=== PATIENT | female | born 1965 | race Caucasian/White ===

== ENCOUNTER 2018-04-30 12:58 | Emergency (ER) | payer BC ==
[~2018-04-30] VITALS: Ht 154.9 cm; Wt 62.7 kg
[2018-04-30 13:06] VITALS: BP 148/90
--- NOTE | 2018-04-30 13:10 | NUR ---
52Y/F BIB SON, REFERRED BY DR BLACKMON FOR LOW HEMOGLOBIN 6.2; DENIES DIZZINESS. SKIN IS PINK/WARM/DRY; AAOX4 WITH EVEN AND STEADY GAIT; PATIENT STATES PAIN OF 0/10 AT THIS TIME; VSS; PATIENT POSITIONED FOR COMFORT; HOB ELEVATED; BEDRAILS UP X1; BED DOWN. ER MD MADE AWARE OF PT STATUS.
--- NOTE | 2018-04-30 13:36 | NUR ---
Patient being evaluated by physician at bedside.
[2018-04-30] MEDS ORDERED: NACL 0.9% 1,000 ML IV ONE (13:40)
[2018-04-30 14:00] LABS: BASOPHILS # (AUTO) 0.1 K/uL (0.00-0.22); MONOCYTES # (AUTO) 0.5 K/uL (0.8-1.0); NEUTROPHILS # (AUTO) 10.8 K/uL (1.8-7.7)
[2018-04-30 14:06] LABS: LYMPHOCYTES # (AUTO) 2.7 K/uL (2.5-16.5); MEAN CORPUSCULAR HGB CONC 28 g/dL (33-37); WHITE BLOOD COUNT (AUTO) 14.3 K/uL (4.8-10.8)
[2018-04-30 14:08] LABS: PROTHROMBIN TIME 9.7 secs (10.8-13.4)
[2018-04-30 14:12] LABS: ANION GAP 13.5 (8-16); CARBON DIOXIDE 26.8 mmol/L (21-32); CREATININE 0.6 mg/dL (0.6-1.3); POTASSIUM 3.3 mmol/L (3.5-5.1)
[2018-04-30 14:17] LABS: ALBUMIN 2.9 g/dL (3.4-5.0); TOTAL BILIRUBIN 0.4 mg/dL (0.0-1.0)
[2018-04-30 14:19] LABS: BASOPHILS % (AUTO) 0.8 % (0.0-2.0); EOSINOPHILS # (AUTO) 0.2 K/uL (0-0.4); EOSINOPHILS % (AUTO) 1.1 % (0.0-4.0); MEAN CORPUSCULAR HEMOGLOBIN 16 pg (27-31); MEAN CORPUSCULAR VOLUME 56.9 fL (80-94); MONOCYTES % (AUTO) 3.6 % (1.7-9.3); NEUTROPHILS % (AUTO) 75.5 % (42.2-75.2); PLATELET COUNT (AUTO) 444 K/uL (140-450); RED BLOOD CELL COUNT(AUTO) 4.38 MIL/uL (4.20-5.40); RED CELL DISTRIBUTION WIDTH 20.4 % (11.6-13.7)
--- NOTE | 2018-04-30 16:47 | NUR ---
Patient does not wish to proceed with medical care recommended by . Patient given information related to possible complications, up to and including , which could occur as a result of leaving hospital at this time. Patient verbalizes understanding of risks involved leaving against medical advice. Patient has signed AMA form.
[2018-04-30 16:48] VITALS: BP 148/90
== END 2018-04-30 16:47 | disposition left against medical advice (07) ==
LOC: MED 12:58
DX: D64.9 Anemia, unspecified (principal); N92.0 Excessive and frequent menstruation with regular cycle; Z88.0 Allergy status to penicillin
CPT/HCPCS: 36415; 80053; 85025; 85610; 85730; 99285